=== PATIENT | male | born 1970 | race Caucasian/White ===

== ENCOUNTER 2018-02-23 13:22 | Emergency (ER) | payer SELFPAY ==
[2018-02-23 13:38] VITALS: TEMP 99; BMI 51.5
--- NOTE | 2018-02-23 13:40 | PDOC ---
History of Present Illness - General Chief Complaint: Lightheaded Stated Complaint: VERTIGO Time Seen by Provider: 02/23/18 13:30 - History of Present Illness Initial Comments: 02/23/18 14:06 47 yo morbidly obese male with a hx of a recent left ear infection is here with intense dizziness and vertigo which began last night. He reports that he took a 30 mg ER adderall in the afternoon and couldn't sleep. While he was lying in bed , moving his head to the right or left caused him to have severe dizziness, nausea, and vomited several times. The vomitus was NBNB. 10 days ago, he finished a course of antibiotics for his left ear infection. He took both an antibiotic pill as well as a drop which he applied into his hear - he does not recall the names. Now, ten days later, these vertiginous symptoms began. He also endorses some mild double vision. He denies having had a fever, chills, or an infection since he finished his Abx course. He denies chest pain, SOB, or difficulty breathing. He denies abdominal pain or back pain. he denies any complaints other than the dizziness, double vision, nausea and vomiting. He reports that he is allergic to Atropine. 02/23/18 14:15 Past History - Past Medical History Allergies/Adverse Reactions: Allergies Allergy/AdvReac Type Severity Reaction Status Date / Time atropine Allergy Severe Swelling Verified 02/23/18 13:38 Home Medications: Ambulatory Orders Dextroamphetamine/Amphetamine [Adderall Xr 30 mg Capsule] 30 mg PO DAILY Glycopyrrolate [Robinul Forte] 4 mg PO BID 02/23/18 Meclizine HCl 25 mg PO PRN 7 Days #14 tab.chew 02/23/18 Ondansetron HCl [Zofran] 4 mg PO PRN #14 tablet 02/23/18 COPD: No Other medical history: HYPERHIDROSIS, RECENT LEFT EAR INFECTION (FEB 2018), SCIATICA - Immunization History Td Vaccination: No Immunization Up to Date: No - Suicide/Smoking/Psychosocial Hx Smoking Status: No Smoking History: Never smoked Number of Cigarettes Smoked Daily: 0 Hx Alcohol Use: No Drug/Substance Use Hx: No Review of Systems - Review of Systems Comments:: 02/23/18 14:13 CONSTITUTIONAL: Positive: Fever 2 weeks back. Absent: chills, diaphoresis, generalized weakness, malaise, loss of appetite HEENT: Positive: Visual changes. Absent: rhinorrhea, nasal congestion, throat pain, throat swelling, difficulty swallowing, mouth swelling, ear pain, eye pain. CARDIOVASCULAR: Absent: chest pain, syncope, palpitations, irregular heart rate, lightheadedness , peripheral edema RESPIRATORY: Absent: cough, shortness of breath, dyspnea with exertion, orthopnea, wheezing, stridor, hemoptysis GASTROINTESTINAL: Absent: abdominal pain, abdominal distension, nausea, vomiting, diarrhea, constipation, melena, hematochezia GENITOURINARY: Absent: dysuria, frequency, urgency, hesitancy, hematuria, flank pain, genital pain MUSCULOSKELETAL: Absent: myalgia, arthralgia, joint swelling SKIN: Absent: rash, itching, pallor HEMATOLOGIC/IMMUNOLOGIC: Absent: easy bleeding, easy bruising, lymphadenopathy, frequent infections ENDOCRINE: Absent: unexplained weight gain, unexplained weight loss, heat intolerance, cold intolerance NEUROLOGIC: Positive: Dizziness, unsteady gait Absent: headache, focal weakness or paresthesias, seizure, mental status changes , bladder or bowel incontinence PSYCHIATRIC: Absent: anxiety, depression, suicidal or homicidal ideation, hallucinations. 02/23/18 14:14 *Physical Exam - Vital Signs Last Vital Signs Temp Pulse Resp BP Pulse Ox 99.0 F 84 18 126/92 95 02/23/18 13:23 02/23/18 13:23 02/23/18 13:23 02/23/18 13:23 02/23/18 13:23 - Physical Exam Comments: 02/23/18 14:16 GENERAL: Well developed, well nourished. Awake and alert. No acute distress. HEENT: Ear canals are full of cerumen. They are not erythematous, no tympanic membrane bulging, no serous fluid in ears. Normocephalic, atraumatic. PERRLA, EOMI. No conjunctival pallor. Sclera are non- icteric. Moist mucous membranes. Oropharynx is clear. NECK: Supple. Full ROM. No JVD. No thyromegaly. No lymphadenopathy. CARDIOVASCULAR: Regular rate and rhythm. No murmurs, rubs, or gallops. Distal pulses are 2+ and symmetric. PULMONARY: No evidence of respiratory distress. Lungs clear to auscultation bilaterally. No wheezing, rales or rhonchi. ABDOMINAL: Soft. Non-tender. Non-distended. No rebound or guarding. No organomegaly. Normoactive bowel sounds. MUSCULOSKELETAL Normal range of motion at all joints. No bony deformities or tenderness. No CVA tenderness. EXTREMITIES: No cyanosis. No clubbing. No edema. No calf tenderness. SKIN: Warm and dry. Normal capillary refill. No rashes. No jaundice. NEUROLOGICAL: There is a horizontal nystagmus ellicited on leftward gaze. Patient also has mild double vision in the Left visual field. Alert, awake, appropriate. Cranial nerves 2-12 intact. No deficits to light touch in face, upper extremities and lower extremities. No motor deficits in the in face, upper extremities and lower extremities. Normal speech. PSYCHIATRIC: Cooperative. Good eye contact. Appropriate mood and affect. 02/23/18 14:18 Heart Score/ECG Review - Electrocardiogram EKG: Normal - Age Age: 45-65 - Risk Factors Risk Factors Heart Score: Yes Hx Obesity - ECG Intrepretation Rhythm: Regular Rhythm - [place]: Normal - ST and T Non Specific ST-T Wave changes: Yes Flattened T Waves: Yes - ECG Impressions Normal ECG: Yes Non-specific ST Elevation: No Ischemic Changes: No ED Treatment Course - LABORATORY CBC & Chemistry Diagram: 02/23/18 14:20 02/23/18 14:20 Medical Decision Making - Medical Decision Making 02/23/18 14:18 47 yo morbidly obese male here after a recent L sided ear infection s/p finishing a course of oral and topical Abx. He is here with dizziness, nausea, vomiting, double vision, nystagmus. This is most likely a peripheral vertigo. Highest on the differential include: BPPV vs viral labyrinthitis. Plan: Cbc, Cmp, Ekg, NS, Zofran, Meclizine, Re-assess. One dose of zofran was enough to manage his nausea. Patient was still feeling dizzy after the first dose of meclizine. After second dose of meclizine patient was able to ambulate comfortably and walk around the ER to the bathroom. He would like to get out of the emergency room. Patient is stable for discharge and understands he needs to be careful until he is seen by an ENT doc for further management. We are giving him a number for an ENT Doc - Doctor Nicolas - for him to follow up with in the next 24 to 72 hours. 02/23/18 14:21 02/23/18 17:01 *DC/Admit/Observation/Transfer Diagnosis at time of Disposition: Vertigo - Discharge Dispostion Disposition: HOME Condition at time of disposition: Good Decision to Admit order: No - Prescriptions Prescriptions: Meclizine HCl 25 mg PO PRN 7 Days #14 tab.chew Ondansetron HCl [Zofran] 4 mg PO PRN #14 tablet - Referrals Referrals: Ben Fajardo MD [Primary Care Provider] - Tapan Valenzuela MD [Staff Physician] - - Patient Instructions Printed Discharge Instructions: Vertigo (Alternative Therapy), Benign Paroxysmal Positional Vertigo, DI for Vertigo, DI for Labyrinthitis, DI for Benign Paroxysmal Positional Vertigo Additional Instructions: You Came into the ER with dizziness, nausea and vomiting. We believe your symptoms are a result of "Peripheral vertigo" - Please see handout for an explanation of this term. It is very important that you schedule an appointment with an ENT doctor as soon as possible, preferably in the next 2 to 4 days. We gave you ondansetron to treat your nausea, IV fluids to hydrate you, and meclizine to treat your dizziness. We will send you these prescriptions to your pharmacy. Please make sure to go pick them up. Come back to the ER if your dizziness gets worse, you can't stop vomiting, or you have any other serious concerns. Print Language: YORUBA - Post Discharge Activity
[2018-02-23 13:56] VITALS: BP 134/69; PULSE 82
[2018-02-23] MEDS ORDERED: MECLIZINE HCL 25 MG TABLET (FP) PO ONE ×2 (14:03→15:31)
[2018-02-23] MEDS ORDERED: SODIUM CHLORIDE 0.9% 500 ML INFUS.BAG IV ONE (14:03)
[2018-02-23] MEDS ORDERED: ONDANSETRON 4 MG/2 ML VIAL IVPUSH ONE (14:04)
[2018-02-23] MEDS ORDERED: MECLIZINE HCL 25 MG TABLET (FP) ONE ×2 (14:10→15:33)
[2018-02-23] MEDS ORDERED: ONDANSETRON 4 MG/2 ML VIAL ONE (14:11)
[2018-02-23 14:50] LABS: BASO % 1.2 % (0-2.0); EOS % 0.6 % (0-4.5); HEMATOCRIT 44.3 % (35.4-49); HEMOGLOBIN 14.6 GM/dl (11.7-16.9); LYMPH % 17.5 % (8-40); MCHC 32.9 g/dl (32.0-35.9); MEAN CELL VOLUME 88.1 fl (80-96); MEAN PLT VOLUME 9.5 fl (7.5-11.1); NEUT % 74.7 % (42.8-82.8); PLATELET COUNT 223 K/MM3 (134-434); RBC 5.03 M/mm3 (4.00-5.60); RDW 13.4 % (11.9-15.9); WHITE BLOOD COUNT 8.7 K/mm3 (4.0-10.8)
[2018-02-23 14:54] LABS: ALK PHOS 56 U/L (32-92); ANION GAP 11 MMOL/L (8-16); BILIRUBIN,TOTAL 0.9 mg/dl (0.2-1.0); BLOOD UREA NITROGEN 14 mg/dl (7-18); CALCIUM 9.1 mg/dl (8.4-10.2); CHLORIDE 102 mmol/L (98-107); CO2 25 mmol/L (22-28); CREATININE 0.8 mg/dl (0.6-1.3); GLUCOSE,RANDOM 137 mg/dl (74-106); POTASSIUM 4.3 mmol/L (3.5-5.1); SGOT/AST 25 U/L (10-42); SGPT/ALT 30 U/L (10-40); SODIUM 138 mmol/L (136-145)
--- NOTE | 2018-02-23 15:14 | PDOC ---
Attending Attestation - Resident Resident Name: Veto Padilla - ED Attending Attestation I have performed the following: I have examined & evaluated the patient, The case was reviewed & discussed with the resident, I agree w/resident's findings & plan, Exceptions are as noted - HPI HPI: 02/23/18 15:10 47 M with h/o morbid obesity presenting to ED with room-spinning dizziness since this morning. Pt states that he woke up, ate breakfast, and subsequently developed severe room-spinning sensation. Pt also reports nausea with vomiting. Pt states that the dizziness is exacerbated by movements of his head. Pt denies KNIGHT. Denies neck pain. Denies weakness/numbness in any extremity. Pt notes that he had an ear infection recently and completed a course of abx. Denies any fevers/chills currently. Denies ear pain. - Physicial Exam PE: 02/23/18 15:13 GENERAL: Awake, alert, and fully oriented, in no acute distress. HEAD: No signs of trauma EYES: PERRLA, EOMI, sclera anicteric, conjunctiva clear ENT: Auricles normal inspection, hearing grossly normal, nares patent, oropharynx clear without exudates. Moist mucosa NECK: Nontender, no stepoffs, Normal ROM, supple, no lymphadenopathy, JVD, or masses LUNGS: Breath sounds equal, clear to auscultation bilaterally. No wheezes, and no crackles HEART: Regular rate and rhythm, normal S1 and S2, no murmurs, rubs or gallops ABDOMEN: Soft, nontender, normoactive bowel sounds. No guarding, no rebound. No masses EXTREMITIES: Normal range of motion, no edema. No clubbing or cyanosis. No cords, erythema, or tenderness NEUROLOGICAL: + Right sided horizontal nystagmus, Cranial nerves II through XII intact. 5/5 strength and sensation in all extremities, Normal speech, normal gait, normal cerebellar function SKIN: Warm, Dry, normal turgor, no rashes or lesions noted. - Medical Decision Making 02/23/18 15:13 47 M with vertigo. Likely peripheral given recent ear infection. Pt with no other neuro deficits to suggest CVA. - Labs - IVF, zofran, meclizine - Reassess 02/23/18 16:58 Labs wnl Pt reassessed s/p meds - now reports resolution of symptoms. Pt ambulatory with steady gait. ENT f/u given Pt is well appearing, with normal vitals. Clinically stable for DC at this time. I discussed the physical exam findings, ancillary test results and final diagnoses with the patient. I answered all of the patient's questions. The patient was satisfied with the care received and felt comfortable with the discharge plan and treatment plan. The patient agrees to follow up with the primary care physician within 24-72 hours.
--- NOTE | 2018-02-25 15:40 | EKG ---
Test Reason : Blood Pressure : / mmHG Vent. Rate : 071 BPM Atrial Rate : 071 BPM P-R Int : 192 ms QRS Dur : 110 ms QT Int : 392 ms P-R-T Axes : 037 017 022 degrees QTc Int : 425 ms SINUS RHYTHM WITH OCCASIONAL PREMATURE VENTRICULAR COMPLEXES NONSPECIFIC T WAVE ABNORMALITY ABNORMAL ECG WHEN COMPARED WITH ECG OF 20-MAY-2009 10:18, PREMATURE VENTRICULAR COMPLEXES ARE NOW PRESENT Confirmed by MD Tapan, Isrrael ([id number]) on 02/25/2018 3:40:19 PM Referred By: XIOMY PURCELL Confirmed By:Isrrael Phelan MD
== END 2018-02-23 18:30 | disposition home or self-care (01) ==
LOC: FER 13:22
PROC: 3E0337Z Introduction of Electrolytic and Water Balance Substance into Peripheral Vein, Percutaneous Approach (ICD-10-PCS; principal; 2018-02-23)
PROC: 3E033GC Introduction of Other Therapeutic Substance into Peripheral Vein, Percutaneous Approach (ICD-10-PCS; 2018-02-23)
DX: R42 Dizziness and giddiness (principal); E66.01 Morbid (severe) obesity due to excess calories; Z68.43 Body mass index [BMI] 50.0-59.9, adult
CPT/HCPCS: 36415; 80053; 85025; 93005; 99284-25

== ENCOUNTER 2018-03-18 04:02 | Emergency (ER) | payer SELFPAY ==
[2018-03-18] MEDS ORDERED: TETRACAINE 0.5% OPHTH SOLN 2 ML BOTTLE ONE (04:08)
[2018-03-18] MEDS ORDERED: FLUORESCEIN NA 1 EA STRIP ONE ×2 (04:09→04:18)
[2018-03-18 04:15] VITALS: BP 174/80; PULSE 84; TEMP 97.9; BMI 51.5
[2018-03-18] MEDS ORDERED: TOBRA 0.3%/DEXAMETH 0.1% OPHTHALMIC SUSP 2.5 ML BTL ONE (04:20)
--- NOTE | 2018-03-18 04:20 | PDOC ---
History of Present Illness - General Chief Complaint: Pain, Acute Stated Complaint: RT EYE PAIN Time Seen by Provider: 03/18/18 04:12 History Source: Patient Exam Limitations: No Limitations - History of Present Illness Initial Comments: 03/18/18 04:20 This is a 47-year-old male who comes in complaining of bilateral eye pain right greater than left. Patient said the pain is a burning sensation in his eye. 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 Patient otherwise denies any complaints. PAST MEDICAL HISTORY: Morbidly obese PAST SURGICAL HISTORY: no significant history FAMILY HISTORY: no pertinant history SOCIAL HISTORY: Pt lives with family and is employed. MEDICATIONS: reviewed ALLERGIES: As per nursing notes ROS General: No fevers or chills, no weakness, no weight loss HEENT: No change in vision. No sore throat,. No ear pain, eye pain as per history of present illness CardioVascular: No chest pain or shortness of breath Respiratory:No cough, or wheezing. Gastrointestinal: no nausea, vomiting, diarrhea or constipation, No rectal bleeding Genitourinary: No dysuria, hematuria, or frequency Musculoskeletal: . No joint pain or swelling Neurologic: No headache, vertigo, dizziness or loss of consciousness Psychiatric: nor depression Skin: No rashes or easy bruising Endocrine: no increased thirst or abnormal weight change Allergic: no skin or latex allergy All other systems reviewed and normal GENERAL: The patient is awake, alert, and fully oriented, in no acute distress. HEAD: Normal with no signs of trauma. EARS: Bilateral ears are normal with normal external canal. and tympanic membranes. EYES: Pupils equal, round and reactive to light, extraocular movements intact, sclera anicteric, conjunctiva injected right eye, on fluorescein staining there is increased uptake of the cornea across the eye. Left eye the conjunctiva is normal and there is minimal increase in uptake bilaterally. There is no foreign body visible EXTREMITIES: Normal range of motion, no edema. NEUROLOGICAL: Normal speech, normal gait. grossly intact PSYCH: Normal mood, normal affect. SKIN: Warm, Dry, normal turgor, no rashes or lesions noted. Assessment and plan: This is a 7-year-old male who comes in with bilateral eye pain right greater than left. Patient has what appears to be a corneal injury/ burn secondary to the chemicals used to dye his hair. Patient's right eye is affected greater than the left. 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 Past History - Past Medical History Allergies/Adverse Reactions: Allergies Allergy/AdvReac Type Severity Reaction Status Date / Time atropine Allergy Severe Swelling Verified 02/23/18 13:38 Home Medications: Ambulatory Orders Dextroamphetamine/Amphetamine [Adderall Xr 30 mg Capsule] 30 mg PO DAILY Glycopyrrolate [Robinul Forte] 4 mg PO BID 02/23/18 Meclizine HCl 25 mg PO PRN 7 Days #14 tab.chew 02/23/18 Ondansetron HCl [Zofran] 4 mg PO PRN #14 tablet 02/23/18 COPD: No HTN: Yes Hypercholesterolemia: Yes - Immunization History Td Vaccination: No Immunization Up to Date: No - Suicide/Smoking/Psychosocial Hx Smoking Status: No Smoking History: Never smoked Number of Cigarettes Smoked Daily: 0 Hx Alcohol Use: No Drug/Substance Use Hx: No *DC/Admit/Observation/Transfer Diagnosis at time of Disposition: Bilateral corneal abrasions Qualifiers: Encounter type: initial encounter Qualified Code(s): S05.01XA - Injury of conjunctiva and corneal abrasion without foreign body, right eye, initial encounter; S05.02XA - Injury of conjunctiva and corneal abrasion without foreign body, left eye, initial encounter - Discharge Dispostion Disposition: HOME Condition at time of disposition: Stable Decision to Admit order: No - Referrals Referrals: Ben Fajardo MD [Primary Care Provider] - - Patient Instructions Additional Instructions: Apply the tobramycin drops 1 drop to each eye 4 times a day. Call your eye doctor Tuesday morning and get an appointment to follow-up with your doctor as soon as possible preferably on Tuesday. Return to the emergency department immediately with ANY new, persistent or worsening symptoms. Continue any medications as previously prescribed by your physician. You should follow up with your primary doctor as soon as possible regarding today's emergency department visit. . Please make sure your doctor reviews the results of your emergency evaluation. Thank you for coming to the Emergency Department today for your care. It was a pleasure to see you today. Please note that your evaluation is INCOMPLETE until you follow-up with your doctor. - Post Discharge Activity
[2018-03-18] MEDS ORDERED: TOBRAMYCIN 0.3% OPHTH SOLN 5 ML BOTTLE OU ONE (04:27)
[2018-03-18] MEDS ORDERED: IBUPROFEN 400 MG TABLET (FP) PO ONE ×2 (04:54)
== END 2018-03-18 04:35 | disposition home or self-care (01) ==
LOC: FER 04:02
DX: S05.01XA Injury of conjunctiva and corneal abrasion without foreign body, right eye, initial encounter (principal); I10 Essential (primary) hypertension; E78.00 Pure hypercholesterolemia, unspecified
CPT/HCPCS: 99281-25